=== PATIENT | female | born 1950 | race Caucasian/White ===

== ENCOUNTER 2016-10-24 22:49 | Emergency (ER) | payer MEDICARE, MEDICAID ==
[~2016-10-24] VITALS: Ht 157.5 cm; Wt 93.9 kg
[2016-10-24 23:26] VITALS: BP 155/81
--- NOTE | 2016-10-25 01:32 | NUR ---
PT TAKEN TO BED 6
--- NOTE | 2016-10-25 01:35 | NUR ---
66Y F PRESENT IN ER C/O OF LENNY LEG CRAMPS X 2 WKS. TODAY ITS GETTING WORST. V/S STABLE, NO DISTRESS.
--- NOTE | 2016-10-25 01:52 | NUR ---
Dr. Mohr evaluating patient at bedside.
[2016-10-25] MEDS ORDERED: MORPHINE SULFATE 4 MG/ML SYR IVP ONE (02:00)
[2016-10-25 02:10] LABS: NEUTROPHILS % (AUTO) 54.4 % (42.2-75.2)
[2016-10-25 02:15] LABS: BASOPHILS # (AUTO) 0.5 K/uL (0.00-0.22); BASOPHILS % (AUTO) 3.7 % (0.0-2.0); EOSINOPHILS # (AUTO) 0.4 K/uL (0-0.4); HEMATOCRIT 43.1 % (36-48); HEMOGLOBIN 14.3 g/dL (12.0-16.0); MEAN CORPUSCULAR HEMOGLOBIN 30 pg (27-31); MEAN CORPUSCULAR HGB CONC 33 g/dL (33-37); MEAN CORPUSCULAR VOLUME 90 fL (80-94); MONOCYTES # (AUTO) 0.7 K/uL (0.8-1.0); MONOCYTES % (AUTO) 4.9 % (1.7-9.3); PLATELET COUNT (AUTO) 283 K/uL (140-450); RED BLOOD CELL COUNT(AUTO) 4.78 MIL/uL (4.20-5.40); RED CELL DISTRIBUTION WIDTH 12.4 % (11.6-13.7); WHITE BLOOD COUNT (AUTO) 14.6 K/uL (4.8-10.8)
[2016-10-25 02:27] LABS: CHOL/HDL RATIO 5.6 (1-4.5)
[2016-10-25 02:29] LABS: ALBUMIN 3.5 g/dL (3.4-5.0); ANION GAP 8.2 (8-16); CALCIUM 8.5 mg/dL (8.5-10.1); CARBON DIOXIDE 29.5 mmol/L (21-32); CREATININE 0.8 mg/dL (0.6-1.3); POTASSIUM 3.7 mmol/L (3.5-5.1); TOTAL BILIRUBIN 0.3 mg/dL (0.0-1.0); TOTAL PROTEIN, SERUM 7.2 g/dL (6.4-8.2)
[2016-10-25 02:32] LABS: INR 1.1 (0.8-1.2); PARTIAL THROMBOPLASTIN TIME 25.6 secs (22-35.6)
[2016-10-25 02:36] LABS: CREATINE KINASE MB 1.3 ng/mL (0-3.6); CREATINE KINASE, TOTAL 91 U/L (26-192); TROPONIN I < 0.017 ng/mL (0.00-0.06)
[2016-10-25 03:21] LABS: APPEARANCE,URINE SL CLOUDY (CLEAR); BILIRUBIN,URINE NEGATIVE (NEGATIVE); BLOOD, URINE NEGATIVE (NEGATIVE); COLOR,URINE YELLOW (YELLOW); LEUKOCYTE ESTERASE ,URINE NEGATIVE (NEGATIVE); NITRITE, URINE NEGATIVE (NEGATIVE); PH,URINE 5.5 (5.0-9.0); PROTEIN,URINE NEGATIVE (NEGATIVE); UGLUCOSE 3+ (NEGATIVE); UROBILINOGEN,URINE 0.2 EU/dL (0.2 - 1)
[2016-10-25 03:36] LABS: BACTERIA,URINE FEW /HPF (None Seen); RBC,URINE 0-5 (RARE) /HPF (0-5); WBC,URINE 0-5 (RARE) /HPF (0-5)
[2016-10-25 03:58] VITALS: BP 126/67
--- NOTE | 2016-10-25 03:58 | NUR ---
Patient discharged with v/s stable. Written and verbal after care instructions given and explained BY DR PANCHAL. Patient alert, oriented and verbalized understanding of instructions. Ambulatory with steady gait. All questions addressed prior to discharge. ID band removed. Patient advised to follow up with PMD. Rx of TRAMADOL HYDROCHLORIDE given. Patient educated on indication of medication including possible reaction and side effects. Opportunity to ask questions provided and answered.
== END 2016-10-25 03:58 | disposition home or self-care (01) ==
LOC: MED 22:49
DX: R25.2 Cramp and spasm (principal); I10 Essential (primary) hypertension; I25.2 Old myocardial infarction; E11.65 Type 2 diabetes mellitus with hyperglycemia; E11.42 Type 2 diabetes mellitus with diabetic polyneuropathy; Z86.73 Personal history of transient ischemic attack (TIA), and cerebral infarction without residual deficits; Z88.5 Allergy status to narcotic agent; Z98.61 Coronary angioplasty status
CPT/HCPCS: 36415; 71010; 80053; 80061; 81001; 82550; 82553; 82948; 83880; 84484; 85025; 85379; 85610; 85730; 93005; 96374; 99285; J2270; Q0092